=== PATIENT | female | born 1955 | race Caucasian/White ===

== ENCOUNTER 2016-12-12 22:22 | Observation (INO) ==
--- NOTE | 2016-12-12 22:34 | Emergency Department Note ---
Disposition Clinical Impression: Ventral hernia without obstruction or gangrene Chest pain Qualifiers: Chest pain type: unspecified Qualified Code(s): R07.9 - Chest pain, unspecified Disposition: Admitted As Inpatient Condition: Undetermined Time of Disposition: 01:22 Chest Pain HPI - General Chief Complaint: ED Chest Pain Stated Complaint: nausea,chest pain, Time Seen by Provider: 12/12/16 22:25 Source: patient Mode of arrival: ambulatory Limitations: no limitations Vital Signs Reviewed: Yes Nursing Notes Reviewed: Yes - History of Present Illness HPI Narrative: 61-year-old female with history of hypertension arrives in [facility] complaining of left sided chest pain with radiation into her left upper extremity, left neck and left side of her back that began roughly 4-5 hours ago. The patient does have associated nausea, vomiting, dyspnea. The patient denies any previous cardiac disease. Patient denies any previous cardiac catheter. The patient does follow up with a telephone interviewer for issues with her blood pressure in the past. The patient denies any other complaints at this time. Pt complaint: chest pain Onset (ago): hour(s) (4-5) Onset: during rest Pain Location: left chest Severity: moderate Severity scale (1-10): 4 Quality: tightness, heaviness Pain Radiation: LUE, back, neck Improves with: nothing Worsens with: nothing Associated symptoms: Reports: nausea, vomiting, dyspnea Treatments prior to arrival chest pain: none - Related Data On Oral Contraceptives: No Home Medications Medication Instructions Recorded Confirmed LORazepam [Ativan] 1 mg PO TID PRN 08/26/16 12/13/16 Metoprolol [Lopressor] 12.5 mg PO BID 08/26/16 12/13/16 Naproxen Sodium [Aleve] 220 mg PO BID PRN 08/26/16 12/13/16 Vit#98/Ferrous Fum/FA 1 tab PO DAILY 08/26/16 12/13/16 [Kpn Tablet] HYDROcodone/Acet 5/325 mg [[place] 1 tab PO BID PRN 12/13/16 12/13/16 5-325 mg] Previous Rx's Medication Instructions Recorded Acetaminophen [Tylenol] 1,000 mg PO Q6HR PRN #1 tablet 08/26/16 Allergies Allergy/AdvReac Type Severity Reaction Status Date / Time codeine AdvReac Mild Nausea Verified 08/26/16 06:59 Constitutional: Denies: fever, chills, weakness, weight change Eyes: Denies: eye pain, eye discharge, vision change ENT ED: Denies: ear pain, throat pain, dental pain, hearing loss, epistaxis, congestion, dysphagia Cardiovascular: Reports: chest pain, dyspnea on exertion Respiratory: Reports: dyspnea Gastrointestinal: Reports: nausea, vomiting. Denies: abdominal pain, diarrhea, constipation Musculoskeletal: Reports: back pain. Denies: neck pain, arthralgia, myalgia Integumentary: Denies: rash, abrasion, lesions Neurological: Denies: headache, weakness, numbness, paresthesias, confusion, abnormal gait, vertigo Chest Pain PMH - Past Medical History Medical history: Reports: hypertension, other Surgical history: Reports: , hysterectomy Psychiatric history: Reports: anxiety, depression, panic disorder - Social History Smoking Status: Never smoker Alcohol use: Reports: none Drug use: Reports: none Physical Exam Physical Exam: General: Patient alert, in mild acute distress to pain, not lethargic HEENT: Head normal inspection, atraumatic, PERRLA, oropharynx grossly intact and normal, trachea midline, no JVD Chest: Nontraumatic, nontender, normal chest rise CV: RRR with no murmurs, rubs, gallops Respiratory: Lungs clear to auscultation bilaterally, no rales, rhonchi, wheezes. Abdomen: Normal inspection, Normal bowel sounds 4 quadrants, nontender to palpation : Patient deferred Extremities: Normal inspection, full range of motion, appropriate pulses, capillary refill under 2 seconds Neurological: Patient alert and oriented 3, cranial nerves II through XII grossly intact, GCS 15 Skin: Warm, intact, no rashes noted Course - Consultations Consultation #1: Spoke with Dr. Hill in surgery who recommended a decompression of the patient' s ventral hernias. Time: 01:19 Vital Signs Temperature 98.5 F 12/12/16 22:27 Pulse Rate 77 12/12/16 22:27 Respiratory Rate 22 12/12/16 22:27 Blood Pressure 197/90 12/12/16 22:27 O2 Sat by Pulse Oximetry 96 12/12/16 22:27 Temperature 98 F 12/13/16 02:26 Pulse Rate 71 12/13/16 02:26 Respiratory Rate 16 12/13/16 02:26 Blood Pressure 145/69 12/13/16 02:26 O2 Sat by Pulse Oximetry 93 12/13/16 02:26 Oxygen Delivery Oxygen Delivery Room Air Chest Pain - MDM Narrative Medical decision making narrative: Patient continued to experience nausea and vomiting. At that time we elected to perform a CT scan of the patient's abdomen which demonstrated 3 ventral hernias with early concern for changes associated with possible granulation. Clinical exam demonstrates that the patient's abdomen remains soft and not clinically show angulated. There is concern for the ventral wall defect associated with this. We called Dr. Hill in surgery who gave recommendation of decompression. After decompression of the patient's ventral hernias the immediately returned. The patient tolerated this well. We will admit the patient to the hospital for chest pain as well as concern for this abdominal peritoneal hernia pain. - Lab Data Lab results reviewed: Yes I reviewed the patient's lab results. Result diagrams: 12/12/16 22:35 12/13/16 03:20 Lab Results 12/12/16 12/12/16 12/12/16 Range/Units 22:35 22:35 22:35 WBC 10.5 (4.3-11.1) K/mcL RBC 4.52 (3.82-4.97) M/mcL Hgb 11.2 L (11.5-15.4) g/dL Hct 36.9 (35.3-44.9) % MCV 81.6 L (83.0-100.0) fL MCH 24.8 L (28.0-33.3) pg MCHC 30.4 L (31.6-35.5) g/dL RDW 14.8 H (11.5-14.5) % Plt Count 430 H (140-400) K/mcL MPV 9.0 L (9.4-12.4) fL Immature Gran % 0.5 (0-4) % Seg Neutrophils % 75.9 % Lymphocytes % 17.3 % Monocytes % 5.3 % Eosinophils % 0.7 % Basophils % 0.3 % Neutrophils # 8.0 (1.6-8.9) K/mcL Lymphocytes # 1.8 (0.6-4.6) K/mcL Monocytes # 0.6 (0.0-1.3) K/mcL Eosinophils # 0.1 (0.0-0.6) K/mcL Basophils # 0.0 (0.0-0.2) K/mcL Sodium 136 (136-145) mEq/L Potassium 4.4 (3.5-4.5) mEq/L Chloride 104 (98-109) mEq/L Carbon Dioxide 25 (19-29) mEq/L BUN 12 (7-20) mg/dL Creatinine 0.74 (0.57-1.11) mg/dL Est GFR ( Amer) > 60 (> 60) Est GFR (Non-Af Amer) > 60 (> 60) BUN/Creatinine Ratio 16 (6-26) Glucose 140 H (70-99) mg/dL Calculated Osmolality 284 (280-300) Lactic Acid (0.5-2.2) mmol/L Calcium 9.4 (8.6-10.8) mg/dL Total Bilirubin 0.4 (0.2-1.2) mg/dL AST 20 (5-34) Units/L ALT 14 (0-55) Units/L Alkaline Phosphatase 98 (38-126) Units/L Troponin I 0.01 (0-0.03) ng/mL Serum Total Protein 8.0 (6.0-8.3) g/dL Albumin 3.9 (3.5-5.0) g/dL Globulin 4.1 H (2.4-3.5) g/dL Albumin/Globulin Ratio 1.0 L (1.1-2.2) 12/13/16 Range/Units 00:37 WBC (4.3-11.1) K/mcL RBC (3.82-4.97) M/mcL Hgb (11.5-15.4) g/dL Hct (35.3-44.9) % MCV (83.0-100.0) fL MCH (28.0-33.3) pg MCHC (31.6-35.5) g/dL RDW (11.5-14.5) % Plt Count (140-400) K/mcL MPV (9.4-12.4) fL Immature Gran % (0-4) % Seg Neutrophils % % Lymphocytes % % Monocytes % % Eosinophils % % Basophils % % Neutrophils # (1.6-8.9) K/mcL Lymphocytes # (0.6-4.6) K/mcL Monocytes # (0.0-1.3) K/mcL Eosinophils # (0.0-0.6) K/mcL Basophils # (0.0-0.2) K/mcL Sodium (136-145) mEq/L Potassium (3.5-4.5) mEq/L Chloride (98-109) mEq/L Carbon Dioxide (19-29) mEq/L BUN (7-20) mg/dL Creatinine (0.57-1.11) mg/dL Est GFR ( Amer) (> 60) Est GFR (Non-Af Amer) (> 60) BUN/Creatinine Ratio (6-26) Glucose (70-99) mg/dL Calculated Osmolality (280-300) Lactic Acid 1.2 (0.5-2.2) mmol/L Calcium (8.6-10.8) mg/dL Total Bilirubin (0.2-1.2) mg/dL AST (5-34) Units/L ALT (0-55) Units/L Alkaline Phosphatase (38-126) Units/L Troponin I (0-0.03) ng/mL Serum Total Protein (6.0-8.3) g/dL Albumin (3.5-5.0) g/dL Globulin (2.4-3.5) g/dL Albumin/Globulin Ratio (1.1-2.2) - Radiology Data Radiology results reviewed: Yes I reviewed the patient's radiology results. - EKG Data EKG attestation: Yes I reviewed and interpreted this EKG. EKG results narrative: Heart rate 78 bpm. MT interval 159 ms. QTC 418 ms. Normal axis. Normal sinus rhythm. No ST elevation or ST depression noted. EKG from 08/27/2016 similar in appearance. No acute changes noted. Attestation Statement - Attestation Attestation: Dr Nunez note: Pt seen in conjunction w/ resident Dr Monahan; Please see his charting for complete documentation; I spent face to face time w/the pt and agree w/ the pt' s treatment and disposition; patient has had known ventral hernias 4 years. Prior gastric bypass surgery over 10 years ago by a surgeon who is no longer in the state. Her hernias are soft. There easily decompressive when I placed the bed in the Trendelenburg position. This soon as the hernias compress however, they come back out through the large ventral defect in the abdominal wall. There are not clinically incarcerated at this time. Admitted with a consult to surgeon Dr Hill, whom we spoke with on 2 occasions. Her abdomen is nonsurgical at the time of admission. Again, Her hernias are not strangulated or incarcerated currently.Admited in stable/improved condition; abd pain w/ n/v and chest pain was her chief complaint, all improved;
[2016-12-12 22:46] LABS: Basophils % 0.3 %; Eosinophils # 0.1 K/mcL (0.0-0.6); Eosinophils % 0.7 %; Hematocrit 36.9 % (35.3-44.9); Hemoglobin 11.2 g/dL (11.5-15.4); Immature Granulocytes % 0.5 % (0-4); Lymphocytes # 1.8 K/mcL (0.6-4.6); Lymphocytes % 17.3 %; Mean Corpuscular HGB Conc 30.4 g/dL (31.6-35.5); Mean Corpuscular Hemoglobin 24.8 pg (28.0-33.3); Mean Corpuscular Volume 81.6 fL (83.0-100.0); Monocytes # 0.6 K/mcL (0.0-1.3); Monocytes % 5.3 %; Platelet Count 430 K/mcL (140-400); Red Blood Count 4.52 M/mcL (3.82-4.97); Red Cell Distribution Width 14.8 % (11.5-14.5); Segmented Neutrophils % 75.9 %
[2016-12-12] MEDS ORDERED: Aspirin 325 MG TABLET PO ONE (22:53)
[2016-12-12] MEDS ORDERED: Ondansetron 4 MG/2 ML VIAL IV ONE (22:53)
[2016-12-12 23:00] LABS: Alanine Aminotransferase 14 Units/L (0-55); Albumin 3.9 g/dL (3.5-5.0); Alkaline Phosphatase 98 Units/L (38-126); Aspartate Amino Transferase 20 Units/L (5-34); BUN/Creatinine Ratio 16 (6-26); Bilirubin,Total 0.4 mg/dL (0.2-1.2); Blood Urea Nitrogen 12 mg/dL (7-20); Calcium 9.4 mg/dL (8.6-10.8); Carbon Dioxide 25 mEq/L (19-29); Chloride 104 mEq/L (98-109); Globulin 4.1 g/dL (2.4-3.5); Glucose 140 mg/dL (70-99); Osmolality,Calculated 284 (280-300); Potassium 4.4 mEq/L (3.5-4.5); Sodium 136 mEq/L (136-145); eGFR For African Americans > 60 (> 60); eGFR For Non-African Americans > 60 (> 60)
[2016-12-12] MEDS ORDERED: *HR* Promethazine 25 MG/ML VIAL IVP ONE (23:18)
[2016-12-13] MEDS ORDERED: *HR* Morphine 2 MG/ML SYRINGE IVP ONE (00:06)
--- NOTE | 2016-12-13 03:02 | Internal Med History&Physical ---
Date of Encounter: 12/13/16 Time of Encounter: 02:57 Assessment and Plan (1) HTN (hypertension) Current visit: Yes Status: Chronic not well controlled will adjust home meds Qualifiers: Hypertension type: essential hypertension Qualified Code(s): I10 - Essential (primary) hypertension (2) Obesity Current visit: Yes Status: Chronic chronic Qualifiers: Obesity type: due to excess calories Obesity severity: non-morbid Qualified Code(s): E66.09 - Other obesity due to excess calories (3) Anxiety and depression Current visit: Yes Status: Chronic chronic (4) Chest pain Current visit: Yes Status: Acute recurrent chest pain ekg and troponin negative needs further evaluation nuclear and echo in am Qualifiers: Chest pain type: unspecified Qualified Code(s): R07.9 - Chest pain, unspecified (5) Ventral hernia without obstruction or gangrene Current visit: Yes Status: Acute concern for strangulation per ct exam abdomen is benign Dr Hill cosnsulted Internal Medicine - H&P: HPI Chief complaint: chest pain , nausea and vomitting Admitted From: Emergency Dept Plans for Post Hospital Care: Home History of present illness: Ms. Hernandez is a 61 year old female Patient with history of hypertension, obesity, anxiety and depression presented to emergency room with complaint of chest pain described as chest pressure radiated to her left arm and neck on and off and recurrent yesterday she developed some nausea and vomiting and then presented to the emergency room . in the emergency room continued to have nausea and vomiting CT of the abdomen was done which showed 3 ventral hernias with possible strangulation . clinically no strangulation per ER Dr. Hill consulted and will see patient in am . she is now chest pain free ekg and troponin normal Past Med Surg Social Fam HX - Past Medical History Medical history: hypertension, other Psychiatric history: anxiety, depression, panic disorder - Past Surgical History Surgical History: , hysterectomy - Social History Smoking Status: Never smoker Smokeless Tobacco Status: No Alcohol use: none Drug use: none - Family History Mother Hx Family Respiratory Disorders: Yes (copd) Internal Medicine - H&P: Meds Acetaminophen [Tylenol] 1,000 mg PO Q6HR PRN #1 tablet 08/26/16 [Rx] LORazepam [Ativan] 1 mg PO TID PRN 08/26/16 [History] Metoprolol [Lopressor] 12.5 mg PO BID 08/26/16 [History] Naproxen Sodium [Aleve] 220 mg PO BID PRN 08/26/16 [History] Vit#98/Ferrous Fum/FA [Kpn Tablet] 1 tab PO DAILY 08/26/16 [ History] HYDROcodone/Acet 5/325 mg [[place] 5-325 mg] 1 tab PO BID PRN 12/13/16 [History] Allergies codeine Adverse Reaction (Mild, Verified 08/26/16 06:59) Nausea All Systems PM: A 10-system review of systems was performed and is negative for pertinent findings except as documented above in the HPI. - Constitutional Constitutional: no chills, no fever(s), no night sweats - EENT Eyes: no change in vision, no discharge, no pain, no photophobia Ears: no ear discharge, no ear pain, no tinnitus Nose, mouth and throat: no dysphagia, no nasal discharge, no neck pain, no sore throat - Cardiovascular Cardiovascular ROS IM: chest pain, dyspnea on exertion - Respiratory Respiratory: no cough, no dyspnea, no wheezing, no excessive phlegm production - Gastrointestinal Gastrointestinal: abdominal pain, nausea, vomiting - Genitourinary Genitourinary: no change in urinary stream, no dysuria, no flank pain, no hematuria - Musculoskeletal Musculoskeletal ROS IM: no numbness, no tingling - Integumentary Integumentary IM: no rash, no unusual bruising - Neurological Neurological ROS: no confusion, no convulsions, no focal weakness, no numbness, no tingling, no tremor(s) - Constitutional Vitals: Temp Pulse Resp BP Pulse Ox 98 F 71 16 145/69 93 12/13/16 02:26 12/13/16 02:26 12/13/16 02:26 12/13/16 02:26 12/13/16 02:26 - Head Head exam: Present: atraumatic, normocephalic - Eye Eye exam: Present: PERRL, conjuntiva pink, sclera anicteric Pupils: Present: PERRL - Neck Neck exam general surgery: Present: supple, trachea midline. Absent: lymphadenopathy - Respiratory Respiratory exam: Present: CTAB. Absent: accessory muscle use, rales, rhonchi, wheezes - Cardiovascular Cardiovascular exam: Present: RRR, +S1, +S2. Absent: diastolic murmur, gallop, rubs, systolic murmur - GI/Abdominal GI/Abdominal exam: Present: soft Internal Med - H&P Results - Labs CBC & Chem 7: 12/12/16 22:35 12/12/16 22:35
[2016-12-13] MEDS ORDERED: Mag Hydrox/Al Hydrox/Simeth 30 ML UDC PO PRN (03:07)
[2016-12-13] MEDS ORDERED: *HR* Morphine 2 MG/ML SYRINGE IVP PRN (03:07)
[2016-12-13] MEDS ORDERED: Naloxone 0.4 MG/ML INJ IVP PRN ×2 (03:07→03:13)
[2016-12-13] MEDS ORDERED: Ondansetron 4 MG/2 ML VIAL IVP PRN (03:07)
[2016-12-13] MEDS ORDERED: *HR* HYDROcodone/Acet 5/325 mg TABLET PO PRN (03:11)
[2016-12-13] MEDS ORDERED: *HR* LORazepam 1 MG TABLET PO PRN (03:11)
[2016-12-13] MEDS: 0.9 % Sodium Chloride 1,000 ML IVC SCH (03:46)
[2016-12-13 04:17] LABS: Alanine Aminotransferase 13 Units/L (0-55); Albumin 3.3 g/dL (3.5-5.0); Albumin/Globulin Ratio 0.9 (1.1-2.2); Alkaline Phosphatase 82 Units/L (38-126); Aspartate Amino Transferase 17 Units/L (5-34); BUN/Creatinine Ratio 17 (6-26); Bilirubin,Total 0.4 mg/dL (0.2-1.2); Blood Urea Nitrogen 12 mg/dL (7-20); Calcium 8.5 mg/dL (8.6-10.8); Carbon Dioxide 25 mEq/L (19-29); Chloride 107 mEq/L (98-109); Chol/HDL Ratio 3.3 (0-4.9); Cholesterol 163 mg/dL (< 200); Globulin 3.5 g/dL (2.4-3.5); Glucose 146 mg/dL (70-99); HDL Cholesterol 50 mg/dL (40-59); LDL Cholesterol,Calculated 101 mg/dL (0-99); Lipase 16 Units/L (8-78); Osmolality,Calculated 290 (280-300); Potassium 4.5 mEq/L (3.5-4.5); Sodium 139 mEq/L (136-145); Total Protein 6.8 g/dL (6.0-8.3); Triglycerides 59 mg/dL (< 150); eGFR For African Americans > 60 (> 60); eGFR For Non-African Americans > 60 (> 60)
[2016-12-13] MEDS ORDERED: Regadenoson 0.4 MG/5 ML SYRINGE IVP ONE (06:23)
[2016-12-13] MEDS: amLODIPine 5 MG TABLET PO SCH (11:05)
[2016-12-13] MEDS: Prenatal Vit/FA 1 EACH TABLET PO SCH (11:05)
[2016-12-13 11:48] LABS: Cancer Antigen 125 6 U/mL (0-35)
--- NOTE | 2016-12-13 13:03 | ECHO - Doppler Report ---
Echocardiogram Name: Ernestine Hernandez Date of Study: 12/13/2016 Date: 1955 Ht: 62.0 in Medical Record#: [id number] Age: 61 Wt: 280.0 lb Gender: Female BSA: 2.21 Order #: [id number] Location: [facility] Room #: 3B39 Reading Physician: Mala Cifuentes DO Health Care Sanitary Technician: Ary Whitaker Ordering Physician: Chetan Stuart MD Primary Physician: Starr Harley CNP Indications: Chest pain Impressions: LVEF 60%. Normal left ventricular size and systolic function. There is evidence of mild diastolic dysfunction of the left ventricle. Mild increased LV wall thickness. Normal right ventricular size and function. Mild mitral regurgitation. Mild tricuspid regurgitation. No pulmonary hypertension by TR gradient. Left Ventricular Wall Motion: Rest Echo Findings All wall segments showed normal motion. Findings: Study Quality * Technically adequate exam. ECG Findings * Normal sinus rhythm. Left Ventricle * LVEF 60%. * Mild concentric left ventricular hypertrophy. * Mild left ventricular diastolic dysfunction. Left Atrium * Normal left atrial size. Mitral Valve * Mildly thickened mitral valve leaflets. * No mitral stenosis. * Mild mitral regurgitation. Aorta * Normally sized aortic root. Aortic Valve * No aortic regurgitation. * Trileaflet aortic valve. * Normal aortic valve structure. * No aortic stenosis. Tricuspid Valve * Tricuspid valve not well visualized. * Mild tricuspid regurgitation. Pulmonic Valve * Pulmonic valve is not well visualized. * No pulmonic stenosis. * No pulmonic regurgitation. Pulmonary Artery * Pulmonary artery not well visualized. Right Ventricle * Normal right ventricular structure and function. RV is not well visualized in the subcostal view. Right Atrium * Normal right atrial size. Interatrial Septum * Interatrial septum not well evaluated. IVC * The IVC is not well evaluated. Pericardium * There is no pericardial effusion present. History Hypertension Family History of CAD 11/29/13 a Previous Echo was performed. Measurements: BP: 145/ 69 2D Normal Values IVSd: 1.40 cm 0.6 - 1.0 cm LVIDd: 4.30 cm 3.7 - 5.6 cm LVPWd: 1.50 cm 0.6 - 1.1 cm LVIDs: 2.80 cm 1.5 - 3.6 cm AO: 2.80 cm < 4.0 cm LA: 4.40 cm 2.0 - 4.0cm %FS: 34.90 cm >25 % LA volume: 62 Mitral Valve Peak E:.97 m/sec Peak A:1.06 m/sec E/A Ratio:0.9 Peak E' Lat Yayo:7.99 cm/s Peak E' Med Yayo:6.73 cm/s E/E' Lat Ratio:12.2 E/E' Med Ratio:14.4 Tricuspid Valve TV Regurg Peak Grad: 30.00mmHg TV Regurg Peak Yayo: 2.73m/sec Updated by Mala Cifuentes on 12/13/2016 12:58:09 PM electronically signed on 12/13/2016 1:00:00 PM with status of Final Wall Motion Sharma: 1=Normal, 2=Hypokinesis, 3=Akinesis, 4=Dyskinesis, 5=Aneurysmal, 6=Hyperkinetic, X=Not Visualized (Blank)=Missing
--- NOTE | 2016-12-13 14:44 | Event Note ---
Date of Encounter: 12/13/16 Time of Encounter: 09:30 Patient seen and examined. On examination, patient sitting upright in bed. Patient currently denies pain and states that she wants to go home. Abdominal CT revealing 3 ventral hernias with possible strangulation. Surgery to remove brought on board who state that this is nonemergent and can be followed up with outpatient. On examination, patient's abdomen is soft and mildly tender. Positive bowel sounds. She has been flatulent. Abdominal CT also revealing a mass on her right ovary. I spoke to the on-call HOME HEALTH AIDE who recommended a transvaginal ultrasound. If deemed to be malignant, she will need transfer to [place] or [facility], likely non-urgently. CEA 125 ordered and is pending. Troponins negative 2. Awaiting the second part of her stress test for tomorrow. Awaiting pelvic ultrasound. Awaiting echocardiogram. Per surgery, patient is able to start on clears and advance her diet as tolerated. Nothing by mouth at midnight for second part of her stress test tomorrow. ITS Impressions Chest X-Ray 12/12/16 22:31 IMPRESSION: No acute cardiopulmonary disease. D/ / Kamar Park MD / Kamar Park MD Interpreting Provider: Kamar Park MD Abdomen/Pelvis CT 12/12/16 23:29 IMPRESSION: 1. Three ventral abdominal wall hernias all containing bowel loops. Moderate small bowel distention which appears to be associated with the mid and caudal hernia sacs and is worrisome for early obstruction and possible strangulation. Close follow-up recommended. 2. Complex cystic right ovarian mass, increased in size from the comparison study. Given the patient's age, ovarian malignancy is a possibility and MOTEL KEEPER consultation is recommended. 3. Cholelithiasis with no acute features. D/ / 12/13/2016 07:06:58 Kamar Park MD / mireya Interpreting Provider: Kamar Park MD
--- NOTE | 2016-12-13 16:22 | Electrocardiograph Report ---
[address] [place], [place] [address] Test Date: 2016-12-12 Pat Name: Ernestine Hernandez Department: 105 Room: 3B39 Gender: F Tufter: [facility] : 1955 Requested By: Boy Monahan Order Number: [id number] Reading MD: Lorenza Laughlin Measurements Intervals [place] Rate: 78 P: 6 CT: 159 QRS: 3 QRSD: 100 T: 1 QT: 384 QTc: 418 Interpretive Statements SINUS RHYTHM Electronically Signed On 12-13-2016 16:20:43 EDT by Lorenza Laughlin
--- NOTE | 2016-12-13 17:14 | OB/GYN Consult Note ---
Date of Encounter: 12/13/16 Time of Encounter: 17:12 Assessment and Plan (1) Ovarian cyst, right Current Visit: Yes Status: Acute Right ovarian cyst: Patient presented to ER with chest pain. Rt ovarian mass incidentally found on CT abd/pelvis w/o contrast. - CT abd/pelvis w/o contrast: right ovarian mass with single septae per review of CT. Measuring 5.9x9.1cm per report. - Transvaginal ultrasound showed septated right ovarian mass measuring 7.3x7.2x5.4cm. Per radiology, concerning for malignancy. - No pelvic fluid or ascites on CT or ultrasound. - CA-125 negative. Patient is high risk surgical candidate with multiple comorbitidies. No clinical suspicion for ovarian cancer at this time. Recommend outpatient follow -up with SECOND BALLER in 4 weeks for repeat ultrasound. In speaking with the patient , she expresses she will be compliant and follow-up per our plan. I examined this patient and my medical decision-making was reviewed with the Resident Physician. I agree with the documented findings, disposition and treatment plan as described except to the extent set forth below. Gillian Avila DO History of Present Illness Consult date: 12/13/16 Requesting physician: Lexy Berumen Reason for consult: ovarian cyst Chief complaint: Chest pain History of present illness: Mrs. Hernandez, a 61yo female, presented to the emergency department last night with chief complaint of chest pain. Right complex ovarian mass incidentally on CT abd/pelvis w/o contrast. Patient has no abdominal, lower back, flank, or pelvic pain. She denies unexpected weight changes. No vaginal discharge. Last IMPORT CLERK exam was 2 years ago. SECOND BALLER: currently none. PCP: Nu Harley CNP PMH: HTN, Obesity, Fibromyalgia, Anxiety, Depression, Ventral hernia PSH: Hysterectomy. Ovaries retained. Family Hx: No hx ovarian cancer or breast cancer. Havits: No tobacco smoking, EtOH, or illicit substance use. Past Med Surg Social Fam HX - Past Medical History Source: patient Medical history: hypertension, other Psychiatric history: anxiety, depression, panic disorder - Past Surgical History Surgical History: , hysterectomy - Social History Smoking Status: Never smoker Smokeless Tobacco Status: No Alcohol use: none Drug use: none - Family History Mother Hx Family Respiratory Disorders: Yes (copd) Father Living Status: Hx Family Cardiac Disorders: Yes (heart disease) Brother Hx Family Cardiac Disorders: Yes Hx Family Cancer: Yes (melanoma) Son Living Status: Still Living Hx Family Neuromuscular Disorders: Yes (spina bifida) Medications and Allergies Acetaminophen [Tylenol] 1,000 mg PO Q6HR PRN #1 tablet 08/26/16 [Rx] Naproxen Sodium [Aleve] 220 mg PO BID PRN 08/26/16 [History] Vit#98/Ferrous Fum/FA [Kpn Tablet] 1 tab PO DAILY 08/26/16 [ History] ClonazePAM [Klonopin] 1 mg PO TID PRN 12/13/16 [History] HYDROcodone/Acet 5/325 mg [[place] 5-325 mg] 1 tab PO BID PRN 12/13/16 [History] Lisinopril-HCTZ 20-12.5 [Prinzide 20-12.5] 1 tab PO DAILY 12/13/16 [History] Allergies codeine Allergy (Mild, Verified 12/13/16 10:23) Hives Review of Systems All Systems: reviewed and no additional remarkable complaints except as stated Constitutional: no fatigue, no headache(s), no weakness, no weight gain, no weight loss Gastrointestinal: heartburn, no abdominal pain, no change in bowel habits, no cramping, no nausea, no vomiting Genitourinary Female: no abnormal vaginal bleeding, no change in urinary stream , no flank pain, no pelvic pain, no urinary frequency, no urinary hesitancy, no urinary urgency, no vaginal discharge Menstruation: post hysterectomy Musculoskeletal: no back pain Psychiatric: anxiety, depression Exam - Vital Signs Vital signs: Initial Vital Signs Temp Pulse Resp BP Pulse Ox 98.5 F 77 22 197/90 96 12/12/16 22:27 12/12/16 22:27 12/12/16 22:27 12/12/16 22:27 12/12/16 22:27 - Constitutional Constitutional: well developed, well nourished, no acute distress, obese - HEENT HEENT: Mucus Membranes Moist - Neck Neck exam: normal inspection - Lungs Respiratory exam: CTAB - Cardiovascular Cardiovascular exam: RRR, +S1, +S2 - Abdomen Abdomen: Present: bowel sounds normal, non tender (abdomen is nontender). Absent: diffuse tenderness, guarding noted - Extremities Extremities exam: normal capillary refill, pedal edema (trace) Results Result Diagrams: 12/12/16 22:35 12/13/16 03:20 Abnormal lab results Hgb 11.2 g/dL (11.5-15.4) L 12/12/16 22:35 MCV 81.6 fL (83.0-100.0) L 12/12/16 22:35 MCH 24.8 pg (28.0-33.3) L 12/12/16 22:35 MCHC 30.4 g/dL (31.6-35.5) L 12/12/16 22:35 RDW 14.8 % (11.5-14.5) H 12/12/16 22:35 Plt Count 430 K/mcL (140-400) H 12/12/16 22:35 MPV 9.0 fL (9.4-12.4) L 12/12/16 22:35 Glucose 146 mg/dL (70-99) H 12/13/16 03:20 Calcium 8.5 mg/dL (8.6-10.8) L 12/13/16 03:20 Albumin 3.3 g/dL (3.5-5.0) L 12/13/16 03:20 Albumin/Globulin Ratio 0.9 (1.1-2.2) L 12/13/16 03:20 LDL Cholesterol, Calc 101 mg/dL (0-99) H 12/13/16 03:20 All other labs normal. CT scan - abdomen: report reviewed, image reviewed CT scan - pelvis: report reviewed, image reviewed US - abdomen: report reviewed, image reviewed, other (US transvaginal - report reviewed) Consult Discharge Plan - Plan Additional Instructions: Low fat diet Referrals: Phil Hill DO [Partnered Physician] - 12/24/16 10:50 am (hospital follow-up ; assess for incisional hernia repair) Starr Harley, [facility] [employer] [Primary Care Provider] - 12/17/16 11:00 am
--- NOTE | 2016-12-13 17:34 | General Surgery Consult Note ---
Date of Encounter: 12/13/16 Time of Encounter: 13:00 Assessment and Plan (1) Ventral hernia without obstruction or gangrene Current Visit: Yes Status: Acute No need for urgent surgical intervention Maintain low fat diet Suggest implementation of weight loss measures F/U as outpatient with Dr. Hill to assess for repair of abdominal wall hernias Surgery will sign off at this time. Thank you for allowing us to participate in the care of this patient. Please call with any further questions or concerns. History of Present Illness Consult date: 12/13/16 Reason for consult: other (abdominal wall hernias) Requesting physician: Boy Monahan History of present illness: Ms. Hernandez is a pleasant 61 year old female with a history of morbid obesity, fibromyalgia, Vit. D deficiency and hypertention. She presented to the ED with complaints of abdominal discomfort, chest discomfort, and nausea/vomiting. She states that this was sudden onset after eating 3 oranges yesterday. Pain was generalized in nature and has now resolved. Denies any fevers/chills. Denies any changes in bowel habits. Denies any melena or hematochezia. She is actively passing flatus. Denies any nausea/vomiting currently. Denies any bloating. Denies any difficulty with urination. Denies any shortness of breath. She does have abdominal wall hernias but states that she has never seen anyone to discuss repair. Past Med Surg Social Fam HX - Past Medical History Source: patient, old records reviewed Medical history: hypertension, other (morbid obesity, fibromyalgia, Vit. D deficiency) Psychiatric history: anxiety, depression, panic disorder - Past Surgical History Surgical History: , hysterectomy (partial), other (Carpel tunnel release (left)), bariatric surgery (gastric bypass) - Social History Smoking Status: Never smoker Smokeless Tobacco Status: No Alcohol use: none Drug use: none Current living situation: Home - Independent Activity Level: Independent ambulation - Family History Mother Living Status: Hx Family Respiratory Disorders: Yes (copd) Hx Family Neuromuscular Disorders: Yes (Parkinson's disease) Father Living Status: Hx Family Cardiac Disorders: Yes (heart disease) Brother Hx Family Cardiac Disorders: Yes Hx Family Cancer: Yes (melanoma) Son Living Status: Still Living Hx Family Neuromuscular Disorders: Yes (spina bifida) Medications and Allergies Acetaminophen [Tylenol] 1,000 mg PO Q6HR PRN #1 tablet 08/26/16 [Rx] Naproxen Sodium [Aleve] 220 mg PO BID PRN 08/26/16 [History] Vit#98/Ferrous Fum/FA [Kpn Tablet] 1 tab PO DAILY 08/26/16 [ History] ClonazePAM [Klonopin] 1 mg PO TID PRN 12/13/16 [History] HYDROcodone/Acet 5/325 mg [[place] 5-325 mg] 1 tab PO BID PRN 12/13/16 [History] Lisinopril-HCTZ 20-12.5 [Prinzide 20-12.5] 1 tab PO DAILY 12/13/16 [History] Allergies codeine Allergy (Mild, Verified 12/13/16 10:23) Hives Review of Systems All systems PM: reviewed and no additional remarkable complaints except as stated (in the HPI) All systems PM: A 10-system review of systems was performed and is negative for pertinent findings except as documented above in the HPI. General Surgery Exam Initial Vital Signs Temp Pulse Resp BP Pulse Ox 98.5 F 77 22 197/90 96 12/12/16 22:27 12/12/16 22:27 12/12/16 22:27 12/12/16 22:27 12/12/16 22:27 - General physical appearance well developed, well nourished, no distress, obese - Eyes normal ocular movement - ENT normal mucosa, atraumatic, normocephalic - Neck trachea midline - Respiratory normal respiratory effort, clear to auscultation - Cardiovascular Cardiovascular exam: Present: RRR - Abdomen Abdomen general surgery: Present: bowel sounds present, soft, non tender Hernia: Present: incisional - Integumentary Integumentary general surgery: Present: warm and dry - Neurologic Present: CN 2-12 grossly intact - Musculoskeletal Present: normal gait, normal posture - Psychiatric Psychiatric general surgery: Present: appropriate, oriented to person, oriented to place, oriented to time, speech is normal, memory intact Exam Initial Vital Signs Temp Pulse Resp BP Pulse Ox 98.5 F 77 22 197/90 96 12/12/16 22:27 12/12/16 22:27 12/12/16 22:27 12/12/16 22:27 12/12/16 22:27 Results - Labs 12/12/16 22:35 12/13/16 03:20 Abnormal lab results Hgb 11.2 g/dL (11.5-15.4) L 12/12/16 22:35 MCV 81.6 fL (83.0-100.0) L 12/12/16 22:35 MCH 24.8 pg (28.0-33.3) L 12/12/16 22:35 MCHC 30.4 g/dL (31.6-35.5) L 12/12/16 22:35 RDW 14.8 % (11.5-14.5) H 12/12/16 22:35 Plt Count 430 K/mcL (140-400) H 12/12/16 22:35 MPV 9.0 fL (9.4-12.4) L 12/12/16 22:35 Glucose 146 mg/dL (70-99) H 12/13/16 03:20 Calcium 8.5 mg/dL (8.6-10.8) L 12/13/16 03:20 Albumin 3.3 g/dL (3.5-5.0) L 12/13/16 03:20 Albumin/Globulin Ratio 0.9 (1.1-2.2) L 12/13/16 03:20 LDL Cholesterol, Calc 101 mg/dL (0-99) H 12/13/16 03:20 Diabetes panel 12/13/16 Range/Units 03:20 Sodium 139 (136-145) mEq/L Potassium 4.5 (3.5-4.5) mEq/L Chloride 107 (98-109) mEq/L Carbon Dioxide 25 (19-29) mEq/L BUN 12 (7-20) mg/dL Creatinine 0.72 (0.57-1.11) mg/dL Glucose 146 H (70-99) mg/dL Calcium 8.5 L (8.6-10.8) mg/dL AST 17 (5-34) Units/L ALT 13 (0-55) Units/L Alkaline Phosphatase 82 (38-126) Units/L Albumin 3.3 L (3.5-5.0) g/dL Triglycerides 59 (< 150) mg/dL HDL Cholesterol 50 (40-59) mg/dL Calcium panel 12/13/16 Range/Units 03:20 Calcium 8.5 L (8.6-10.8) mg/dL Albumin 3.3 L (3.5-5.0) g/dL Pituitary panel 12/13/16 Range/Units 03:20 Sodium 139 (136-145) mEq/L Potassium 4.5 (3.5-4.5) mEq/L Chloride 107 (98-109) mEq/L Carbon Dioxide 25 (19-29) mEq/L BUN 12 (7-20) mg/dL Creatinine 0.72 (0.57-1.11) mg/dL Glucose 146 H (70-99) mg/dL Calcium 8.5 L (8.6-10.8) mg/dL Adrenal panel 12/13/16 Range/Units 03:20 Sodium 139 (136-145) mEq/L Potassium 4.5 (3.5-4.5) mEq/L Chloride 107 (98-109) mEq/L Carbon Dioxide 25 (19-29) mEq/L BUN 12 (7-20) mg/dL Creatinine 0.72 (0.57-1.11) mg/dL Glucose 146 H (70-99) mg/dL Calcium 8.5 L (8.6-10.8) mg/dL Total Bilirubin 0.4 (0.2-1.2) mg/dL AST 17 (5-34) Units/L ALT 13 (0-55) Units/L Alkaline Phosphatase 82 (38-126) Units/L Albumin 3.3 L (3.5-5.0) g/dL All other labs normal. - Imaging CT scan - abdomen: report reviewed CT scan - pelvis: report reviewed Additional studies: Chest X-Ray 12/12/16 22:31 IMPRESSION: No acute cardiopulmonary disease. D/ / Kamar Park MD / Kamar Park MD Interpreting Provider: Kamar Park MD Abdomen/Pelvis CT 12/12/16 23:29 IMPRESSION: 1. Three ventral abdominal wall hernias all containing bowel loops. Moderate small bowel distention which appears to be associated with the mid and caudal hernia sacs and is worrisome for early obstruction and possible strangulation. Close follow-up recommended. 2. Complex cystic right ovarian mass, increased in size from the comparison study. Given the patient's age, ovarian malignancy is a possibility and [employer] consultation is recommended. 3. Cholelithiasis with no acute features. D/ / 12/13/2016 07:06:58 Kamar Park MD / [email or web address] Interpreting Provider: Kamar Park MD Abdomen/Pelvis/Transvag US 12/13/16 14:00 IMPRESSION: Complex 7.3 cm cystic right adnexal mass which is suspicious for malignancy until proven otherwise. Recommend either further evaluation with surgical consult and/or MRI. D/ / 12/13/2016 15:43:36 Monserrat Anderson MD / [email or web address] Interpreting Provider: Monserrat Anderson MD Consult Discharge Plan - Plan Additional Instructions: Low fat diet Referrals: Starr Harley, EDDIE [Primary Care Provider] - 12/17/16 11:00 am Phil Hill DO [Partnered Physician] - 12/24/16 10:50 am (hospital follow-up ; assess for incisional hernia repair) - Attending Attestation I examined this patient and my medical decision-making was reviewed with the [employer] HAND/PA/Advanced Practice Nurse/Resident Physician. I agree with the documented findings, disposition and treatment plan as described except to the extent set forth below.
[2016-12-13] MEDS ORDERED: Nystatin POWDER 30 GM BOTTLE TP PRN (18:13)
[2016-12-14] MEDS: amLODIPine 5 MG TABLET PO SCH (09:22)
[2016-12-14] MEDS: Prenatal Vit/FA 1 EACH TABLET PO SCH (09:22)
[2016-12-14] MEDS: 0.9 % Sodium Chloride 1,000 ML IVC SCH (09:32)
--- NOTE | 2016-12-14 14:11 | Nuclear Medicine Stress Report ---
Regadenoson Nuclear 2 day Name: Ernestine Hernandez Date of Study: 12/13/2016 Date: 1955 Ht: 61.0 in Medical Record#: [id number] Age: 61 Wt: 280.0 lb Gender: Female Order #: [id number] Location: [facility] Room: [facility] Supervising Provider: Tk Gongora CNP Reading Physician: Sebastien Banegas DO, FACBrunilda, MAYUR NUGENT Ordering Physician: Lexy Berumen CNP Primary Care Physician: Starr Harley CNP Stress Technologist: Heidi Leavitt, [employer] Consultant: Kel Turner Indications: Chest Pain Impression: Pharmacologic stress ECG is negative for ischemia at level of heart rate achieved. Gated EF = 72%. Normal wall motion. Small sized, mild intensity, reversible apical inferior perfusion defect, which could represent a very small area of ischemia. SDS 1. This is a low risk positive study. Clinical correlation suggested. Ordering provider notified. History: Hypertension Stress Test Summary: Stress Test Type: Pharmacologic Regadenoson 0.4mg/5ml given IV Baseline Information: Initial Heart Rate: 68 Blood Pressure: 130/62 Stress Information: Test Terminated Due to (primary): As per protocol Maximum Blood Pressure: 128/64 Maximum Heart Rate: 85 Percent Maximum Heart Rate Achieved: 53 Double Product: 20966 METS Reached: 1 Symptoms: No chest symptoms Nuclear Summary: SPECT myocardial perfusion imaging using Tc99m Sestamibi given intravenously was performed at rest and following cardiac stress testing. The resting images were obtained following initial dose of 31.8 mCi. Following stress an additional dose of 31.0 mCi was given at peak exercise or 30 seconds post regadenoson infusion. Medication Given: Time Medication Dose Units Route Findings: Stress Note * Resting ECG demonstrated normal sinus rhythm. * No baseline arrhythmias were noted. * Pharmacologic stress ECG is negative for ischemia at level of heart rate achieved. * No arrhythmias were noted during stress. * Patient had no chest pain during stress. Hemodynamic responses * Normal hemodynamic responses to pharmacologic stress. Study Quality * Study quality is average. Gated EF % * Gated EF = 72%. Left Ventricle * The left ventricle is not dilated. * LVEDV = 111 mL. NORMALS * Normal wall motion. * Normal Segmental Perfusion in rest. Inferior Perfusion Stress * The apical inferior segment shows a mild reduction in perfusion. TID * No evidence of transient ischemic dilatation. TID ratio * TID ratio = 1.10. Lung Uptake * There is no evidence of increase lung uptake. Updated by Sebastien Banegas DO, FACBrunilda, JOVANNA, MAYUR on 12/14/2016 2:03:55 PM electronically signed on 12/14/2016 2:05:05 PM with status of Final
--- NOTE | 2016-12-14 14:49 | Discharge Summary ---
Date of Encounter: 12/15/16 Time of Encounter: 14:15 - Discharge Diagnosis (1) Chest pain Priority: Primary Status: Resolved Comments: Patient denied chest pain on day of discharge. Stress test slightly abnormal, cardiology brought on board and proceeded with medical management with the addition of aspirin and metoprolol to her regimen. She will follow up outpatient with cardiology. Qualifiers: Chest pain type: unspecified Qualified Code(s): R07.9 - Chest pain, unspecified (2) Abnormal stress test Priority: Primary Status: Acute (3) Ventral hernia without obstruction or gangrene Priority: Primary Status: Acute Comments: Seen and evaluated by surgical team felt this was nonsurgical. She was able to tolerate a regular diet while admitted. Follow-up outpatient with surgery. (4) HTN (hypertension) Priority: Secondary Status: Chronic Comments: Markedly hypertensive upon presentation. At home, she is on lisinopril-HCTZ 20- 12.5. This was discontinued and the patient was placed on amlodipine 10 mg daily and metoprolol 12.5 mg daily. Her blood pressure was controlled with this new regimen however patient needs a diuretic. We will place her back on HCTZ and have her check her blood pressure daily and follow-up outpatient Qualifiers: Hypertension type: essential hypertension Qualified Code(s): I10 - Essential (primary) hypertension (5) Anxiety and depression Priority: Secondary Status: Chronic (6) Ovarian cyst, right Priority: Primary Status: Acute Comments: Seen by LAMP WIRER and a transvaginal ultrasound revealing a right-sided ovarian mass. Per LAMP WIRER, low suspicion for malignancy. CA-125 negative. Follow-up in 4 weeks outpatient with LAMP WIRER (7) Morbid obesity with BMI of 50.0-59.9, adult Priority: Secondary Status: Chronic - Discharge Medications Prescriptions: Nitroglycerin 0.3 mg SL Q5MIN PRN #20 tab.subl PRN Reason: Chest Pain Amlodipine [Norvasc] 5 mg PO DAILY #30 tablet Aspirin 81 mg PO DAILY #30 tab.chew Hydrochlorothiazide 12.5 mg PO DAILY #30 tablet Metoprolol [Lopressor] 12.5 mg PO BID #30 tablet Home Medications: Acetaminophen [Tylenol] 1,000 mg PO Q6HR PRN #1 tablet 08/26/16 [Rx] Naproxen Sodium [Aleve] 220 mg PO BID PRN 08/26/16 [History] Vit#98/Ferrous Fum/FA [Kpn Tablet] 1 tab PO DAILY 08/26/16 [ History] ClonazePAM [Klonopin] 1 mg PO TID PRN 12/13/16 [History] HYDROcodone/Acet 5/325 mg [[place] 5-325 mg] 1 tab PO BID PRN 12/13/16 [History] Amlodipine [Norvasc] 5 mg PO DAILY #30 tablet 12/14/16 [Rx] Aspirin 81 mg PO DAILY #30 tab.chew 12/14/16 [Rx] Hydrochlorothiazide 12.5 mg PO DAILY #30 tablet 12/14/16 [Rx] Metoprolol [Lopressor] 12.5 mg PO BID #30 tablet 12/14/16 [Rx] Nitroglycerin 0.3 mg SL Q5MIN PRN #20 tab.subl 12/15/16 [Rx] Allergies/Adverse Reactions: Allergies codeine Allergy (Mild, Verified 12/13/16 10:23) Hives Procedures/tests Complete & Pending: Procedures Performed prior 72 hours Category Date Time Status NM caio perf SPECT multi [NM] Routine Exams 12/13/16 03:10 Taken US pelvis transvag dopp non ob [US] Routine Exams 12/13/16 14:00 Completed EV echocardiogram Routine Y 12/13/16 03:10 Completed SP pharm nuclear stress Routine Y 12/13/16 07:50 Completed Date of admission: 12/13/16 01:47 Primary care physician: Starr Harley CNP Consults: 12/13/16 09:29 Consult to [facility]ACHINE [facility]PERATOR [CONS] Routine Consulting Provider: L[facility] Elinor Reason for Consult: complex right ovarian mass, concerning for malignancy Time Notified: 09:30 Call Completed: Yes 12/14/16 14:05 Consult to Cardiology [CONS] Routine Comment: Consulting Provider: Card[facility] [place] Reason for Consult: possibly abnl stress Time Notified: 14:05 Call Completed: Yes Discharging clinician: Lexy Berumen Anticipated date of discharge: 12/14/16 - Patient Status Disposition: Home, Self-Care Condition: Fair Functional capacity at discharge: independent ambulation Overall status at discharge: patient is back to baseline - Discharge Instructions Instructions: Chest Pain (DC), Chronic Hypertension (DC) Follow Up With: Phil Hill DO [Partnered Physician] - 12/24/16 10:50 am (hospital follow-up ; assess for incisional hernia repair) Gillian Avila DO [Partnered Physician] - (follow up appointment web requested. will call with a date and time ) Starr Harley, EDDIE [Primary Care Provider] - 12/17/16 11:00 am Additional Instructions: Follow-up with primary care provider and surgery as scheduled. Follow-up with LAMP WIRER Dr. Avila in 4 weeks. - Diet and Activity Activity: increase activity as tolerated Diet: low fat, low cholesterol, low salt diet Hospital course: Ms. Hernandez is a 61 year old female with past medical history of hypertension, morbid obesity and BMI of 51, anxiety, depression, panic disorder. Status post hysterectomy. Patient presented to the emergency department chief complaint intermittent nausea and vomiting with chest pressure that radiated to her left arm and left neck. Patient had nausea and vomiting in the emergency department and abdominal pelvic CT revealed 3 ventral hernias with possible strangulation. Surgery was brought on board and the patient was admitted to the hospitalist service. Chest x-ray negative. Per surgery, hernias or not strangulated and there were no indications for surgery and they have cleared her for outpatient follow-up with them. Patient denied abdominal pain after admission. She was then advanced to a regular diet which she tolerated well. Abdominal pelvic CT also revealed a mass to her right ovary so LAMP WIRER was brought on board. They performed a transvaginal ultrasound and surmised there is a low probability of this being a malignancy. CEA 125 unremarkable. She will follow up with LAMP WIRER in 4 weeks for repeat imaging. Patient denied chest pain on day of discharge. Echocardiogram unremarkable with ejection fraction of 60% and mild diastolic dysfunction. Troponins negative. Her stress test was mildly abnormal and cardiology was brought on board. Due to low risk abnormality of the stress test , the decision was made to proceed with medical management with the initiation of aspirin and metoprolol to her regimen. Also sublingual nitroglycerin as needed. She will follow up outpatient with cardiology. Regarding her blood pressure, she was markedly hypertensive upon presentation. Her lisinopril and ACTZ were held and she was placed on amlodipine. She was also placed on a beta leeann. Blood pressure was much better controlled however she was mildly fluid overloaded since she was placed back on her HCTZ. She was also started on a baby aspirin for further risk factor stratification. Her lipid panel was unremarkable, recommend dietary and lifestyle changes prior to the initiation of a statin. She was discharged home in stable condition with close outpatient follow-up recommended. ITS Impressions Chest X-Ray 12/12/16 22:31 IMPRESSION: No acute cardiopulmonary disease. D/ / Kamar Park MD / Kamar Park MD Interpreting Provider: Kamar Park MD Abdomen/Pelvis CT 12/12/16 23:29 IMPRESSION: 1. Three ventral abdominal wall hernias all containing bowel loops. Moderate small bowel distention which appears to be associated with the mid and caudal hernia sacs and is worrisome for early obstruction and possible strangulation. Close follow-up recommended. 2. Complex cystic right ovarian mass, increased in size from the comparison study. Given the patient's age, ovarian malignancy is a possibility and [facility] consultation is recommended. 3. Cholelithiasis with no acute features. D/ / 12/13/2016 07:06:58 Kamar Park MD / mireya Interpreting Provider: Kamar Park MD Abdomen/Pelvis/Transvag US 12/13/16 14:00 IMPRESSION: Complex 7.3 cm cystic right adnexal mass which is suspicious for malignancy until proven otherwise. Recommend either further evaluation with surgical consult and/or MRI. D/ / 12/13/2016 15:43:36 Monserrat Anderson MD / jake Interpreting Provider: Monserrat Anderson MD Echocardiogram impressions: LVEF 60%. Normal left ventricular size and systolic function. There is evidence of mild diastolic dysfunction of the left ventricle. Mild increased LV wall thickness. Normal left ventricular size and function. Mild mitral regurgitation. Mild tricuspid regurgitation. No pulmonary hypertension by TR gradient. 2 day nuclear stress test impression: Pharmacologic stress ECG is negative for ischemia at the level of heart rate achieved. Gated ejection fraction equals 72 %. Normal wall motion. Small size, mild intensity, reversible apical inferior perfusion defect, which could represent a very small area of ischemia. SDS 1. This is a low risk positive study. - Time Spent with Patient Total time spent providing and/or coordinating discharge services: - Constitutional Vitals: Temp Pulse Resp BP Pulse Ox 98.0 F 68 15 102/57 94 12/14/16 11:15 12/14/16 11:15 12/14/16 11:15 12/14/16 11:15 12/14/16 11:15 General appearance: Present: A&O X 3, morbidly obese, pleasant, no acute distress, answers questions appropriately - Head Head exam: Present: atraumatic, normocephalic - Eye Eye exam: Present: PERRL, conjuntiva pink, sclera anicteric Pupils: Present: PERRL - Neck Neck exam general surgery: Present: supple, trachea midline. Absent: lymphadenopathy - Respiratory Respiratory exam: Present: CTAB. Absent: accessory muscle use, rales, respiratory distress, rhonchi, wheezes - Cardiovascular Cardiovascular exam: Present: RRR, +S1, +S2. Absent: diastolic murmur, gallop, rubs, systolic murmur - GI/Abdominal GI/Abdominal exam: Present: distended, normal bowel sounds, soft, no peritoneal signs. Absent: tenderness - Extremities Exam Extremities exam: Present: pedal edema (chronic), warm, radial pulses palpable and symetrical. Absent: calf tenderness, cyanotic - Neurological Exam Neurological exam: Present: alert, CN II-XII intact, oriented X3, no focal deficits, strengths equal and symetr throughout. Absent: pronater drift, facial droop, speech deficit - Skin Skin exam: Present: dry, intact, normal color, warm
[2016-12-14] MEDS ORDERED: hydroCHLOROthiazide 25 MG TABLET PO ONE (14:57)
--- NOTE | 2016-12-14 16:26 | Cardiology Consult Note ---
Date of Encounter: 12/14/16 Time of Encounter: 16:23 Assessment and Plan (1) Chest pain Current Visit: Yes Status: Resolved Several hours of diffuse symptoms, including chest and abdominal discomfort, dry heaves, etc. Serial troponins negative. Echocardiocardiogram demonstrates normal LV function. Stress test (2 day) demonstrates an equivocal/low risk abnormality involving the apical inferior segments. SDS 1. Currently chest pain free. At this point, presentation does not appear to be high risk. Findings discussed with patient. Reasonable to pursue a conservative strategy of observation and medical therapy for now. Aspirin 81 mg daily and Torprol XL 25 mg daily recommended. SL NTG prn. I'd be happy to see her in the office for followup. Patient and daughter agreeable to this plan. All questions answered. Qualifiers: Chest pain type: unspecified Qualified Code(s): R07.9 - Chest pain, unspecified Discussion w patient/family: The assessment and plan as outlined above was discussed with the patient and/or family members who expressed understanding and agreement. All questions were answered. Thank you for involving us in the care of your patient. Please call with any questions. History of Present Illness Consult date: 12/14/16 Requesting physician: Lexy Berumen Consult reason: Abnormal stress test Chief complaint: Chest pain History of present illness: Ms. Hernandez is a 61 year old female who was admitted re: several hours of not feeling well. Associated with weakness, nausea, chest discomfort, back discomfort, upset stomach. No prior history of heart disease. No prior cardiac testing per patient. Stress test demonstrates a very small apical inferior defect. Normal EF. Past Med Surg Social Fam HX - Past Medical History Medical history: hypertension, other Psychiatric history: anxiety, depression, panic disorder - Past Surgical History Surgical History: , hysterectomy - Social History Smoking Status: Never smoker Smokeless Tobacco Status: No Alcohol use: none Drug use: none - Family History Mother Living Status: Hx Family Respiratory Disorders: Yes (copd) Hx Family Neuromuscular Disorders: Yes (Parkinson's disease) Father Living Status: Hx Family Cardiac Disorders: Yes (heart disease) Brother Hx Family Cardiac Disorders: Yes Hx Family Cancer: Yes (melanoma) Son Living Status: Still Living Hx Family Neuromuscular Disorders: Yes (spina bifida) Medications and Allergies Acetaminophen [Tylenol] 1,000 mg PO Q6HR PRN #1 tablet 08/26/16 [Rx] Naproxen Sodium [Aleve] 220 mg PO BID PRN 08/26/16 [History] Vit#98/Ferrous Fum/FA [Kpn Tablet] 1 tab PO DAILY 08/26/16 [ History] ClonazePAM [Klonopin] 1 mg PO TID PRN 12/13/16 [History] HYDROcodone/Acet 5/325 mg [[place] 5-325 mg] 1 tab PO BID PRN 12/13/16 [History] Amlodipine [Norvasc] 5 mg PO DAILY #30 tablet 12/14/16 [Rx] Aspirin 81 mg PO DAILY #30 tab.chew 12/14/16 [Rx] Hydrochlorothiazide 12.5 mg PO DAILY #30 tablet 12/14/16 [Rx] Metoprolol [Lopressor] 12.5 mg PO BID #30 tablet 12/14/16 [Rx] Allergies codeine Allergy (Mild, Verified 12/13/16 10:23) Hives All Systems Review: A 10-system review of systems was performed and is negative for pertinent findings except as documented above in the HPI. - Constitutional Constitutional: fatigue, malaise - Cardiovascular Cardiovascular: as per HPI - Genitourinary Genitourinary: other (nausea, dry heaves) Physical Examination Vital Signs, Last 4 Hours Temp Pulse Resp BP Pulse Ox 12/14/16 15:40 98.0 F 64 16 135/78 94 General: Conversant, No Apparent Distress HEENT: Atraumatic, Normocephaly, Mucus Membranes Moist Neck: No JVD Cardiac: Reg Rate and Rhythm, Normal S1 and S2, No Murmur Lungs: Normal Breath Sounds, No Wheeze, Rales, Rhonchi Neuro: Alert and responsive, No focal deficits noted Abdomen: Soft, Non-Tender, Other (Obese) Skin: No rashes noted on visualized skin Musculoskeletal: No Chest Wall Tenderness Extremities: No Clubbing, No Cyanosis, Other (Mild edema) Results 12/12/16 22:35 12/13/16 03:20 - Imaging and Cardiology Stress Test: report reviewed Echo: report reviewed - EKG Interpretation EKG results cardiology: personally reviewed (NSR, nonspecific inferior st-t changes.) Consult Discharge Plan - Plan Additional Instructions: Follow-up with primary care provider and surgery as scheduled. Follow-up with [employer]ER Dr. Avila in 4 weeks. Referrals: Phil Hill DO [Partnered Physician] - 12/24/16 10:50 am (hospital follow-up ; assess for incisional hernia repair) Gillian Avila DO [Partnered Physician] - (follow up appointment web requested. will call with a date and time ) Starr Harley, EDDIE [Primary Care Provider] - 12/17/16 11:00 am Prescriptions: Amlodipine [Norvasc] 5 mg PO DAILY #30 tablet Aspirin 81 mg PO DAILY #30 tab.chew Hydrochlorothiazide 12.5 mg PO DAILY #30 tablet Metoprolol [Lopressor] 12.5 mg PO BID #30 tablet
[2016-12-17 10:29] VITALS: BP 135/78
== END 2016-12-14 16:44 | disposition home or self-care (01) ==
LOC: 3BNU 22:22 → EMEROO 22:22 → 3BNU 12-13 02:01
PROVIDERS: ADMIT Nurse Practitioner Family; ATTEND Nurse Practitioner Family